=== PATIENT | female | born 1955 | race Caucasian/White ===

== ENCOUNTER 2018-11-28 08:30 | Day surgery (SDC) | payer BC ==
[~2018-11-28 08:30] MED LIST: CITA20 PO
== END 2018-11-28 22:46 | disposition home or self-care (01) ==
LOC: MOI US 08:30
PROC: 0HBU3ZX Excision of Left Breast, Percutaneous Approach, Diagnostic (ICD-10-PCS; principal; 2018-11-28)
DX: C50.912 Malignant neoplasm of unspecified site of left female breast (principal); Z17.0 Estrogen receptor positive status [ER+]
CPT/HCPCS: 19083; 77065; 88305; 88360; A4648; G0279

== ENCOUNTER 2018-12-09 07:05 | Day surgery (SDC) | payer BC | END 2018-12-10 23:17 | disposition home or self-care (01) | LOC: MOI US 07:05 | DX: C50.919 Malignant neoplasm of unspecified site of unspecified female breast (principal) | CPT/HCPCS: 19285; 77065; G0279 ==

== ENCOUNTER 2018-12-20 08:19 | Day surgery (SDC) | payer BC, OTHER ==
[~2018-12-20] VITALS: Ht 157.5 cm; Wt 68.7 kg
[~2018-12-20 08:19] MED LIST changes: +AMIT25 PO
--- NOTE | 2018-12-20 10:16 | NUR ---
History, Chart, Medications and Allergies reviewed before start of procedure. Patient confirms NPO status and agrees with scheduled surgery. Lungs clear T/O to Auscultation. Patient reports completing Chlorhexadine shower X2 prior to admission to hospital. Pre-Op teaching done. Pt verbalizes understanding. Patient States Post-Procedure ride home has been arranged.
--- NOTE | 2018-12-20 11:20 | NUR ---
SURVEY PROJECT MANAGER REPORT AT BEDSIDE IMMEDIATELY PREOP, GAVE 5 MIN PER RN REQUEST PRIOR TO OR.
--- NOTE | 2018-12-20 12:23 | NUR ---
12/20/18 1223 Cele Pennington ALL COUNTS CORRECT, SPECIMEN TO RADIOLOGY AND PATHOLOGY
--- NOTE | 2018-12-20 12:42 | NUR ---
CARE TO REENA MILLAN RN
--- NOTE | 2018-12-20 12:48 | NUR ---
ASSUMED CARE FROM ANNE-MARIE Camarena RN. PT HAS A PAIN LEVEL OF 6/10. B/P WNL. GAVE 25MCGS IV FENTANYL. WILL CONTINUE TO MONITOR. GAUZE TO LEFT BREAST CDI.
--- NOTE | 2018-12-20 14:03 | NUR ---
"DAY SURGERY RN | DISCHARGE Patient steady on feet. VSS. A/O. Tolerating PO fluids. States pain declining. No issues in stepdown. Patient taken in wheelchair by volunteer to private vehicle ( is ride). Rx given with discharge instructions to patient. Site remains C/D/I."
== END 2018-12-20 22:56 | disposition home or self-care (01) ==
LOC: RAD 08:19 → ORSCMMR 08:19 → NM 09:30 → RAD 22:56
DX: C50.812 Malignant neoplasm of overlapping sites of left female breast (principal); C50.919 Malignant neoplasm of unspecified site of unspecified female breast; Z88.5 Allergy status to narcotic agent
CPT/HCPCS: 38792; 76098; A9520; J0690; J1100; J2250; J2370; J2405; J3010; J7120; Q9968

== ENCOUNTER 2019-06-28 09:13 | Day surgery (SDC) | payer MEDICARE, BC ==
[~2019-06-28] VITALS: Ht 160 cm; Wt 66.8 kg
[~2019-06-28 09:13] MED LIST changes: +ADVIL LIQUI-GE200 MG PO; +ANAS1 PO; +CRANBERRY CONC1 EACH PO; +Calcium Citrat250 MG PO; +Cinnamon500 MG PO; +Daily Multiple1 EACH PO; +Ranitidine HCl150 M1 PO; +VITAMIN D35000 UNIT PO; +ZOLEDRONIC4 MG/1001 IV
== END 2019-06-28 11:25 | disposition home or self-care (01) ==
LOC: ORSCSDS 09:13
PROVIDERS: Internal Medicine Gastroenterology
PROC: 0DJD8ZZ Inspection of Lower Intestinal Tract, Via Natural or Artificial Opening Endoscopic (ICD-10-PCS; principal; 2019-06-28 10:30)
DX: Z12.11 Encounter for screening for malignant neoplasm of colon (principal); Z85.3 Personal history of malignant neoplasm of breast; Z53.09 Procedure and treatment not carried out because of other contraindication; K21.9 Gastro-esophageal reflux disease without esophagitis; Z87.891 Personal history of nicotine dependence; Z79.899 Other long term (current) drug therapy
CPT/HCPCS: 93005; 93010; J2704; J7120

== ENCOUNTER → 2020-10-04 | Outpatient (CLI) | payer MEDICARE, BC ==
[2020-10-04 13:45] LABS: Stool Occult Bld Immuno 1 Negative (NEGATIVE)
== END ==
LOC: LAB 11:39 → LAB SHORT 11:39
PROVIDERS: Family Medicine
DX: Z12.11 Encounter for screening for malignant neoplasm of colon (principal)
CPT/HCPCS: G0328

== ENCOUNTER → 2021-07-30 | Outpatient (CLI) | payer MEDICARE, BC | END | disposition home or self-care (01) | LOC: LAB SHORT 10:58 | DX: D22.71 Melanocytic nevi of right lower limb, including hip (principal); D22.72 Melanocytic nevi of left lower limb, including hip; L81.4 Other melanin hyperpigmentation | CPT/HCPCS: 88305 ==

== ENCOUNTER → 2021-08-19 | Outpatient (CLI) | payer MEDICARE, BC | LOC: LAB 11:22 → LAB SHORT 11:22 | DX: D48.5 Neoplasm of uncertain behavior of skin (principal); D36.11 Benign neoplasm of peripheral nerves and autonomic nervous system of face, head, and neck | CPT/HCPCS: 88305 ==

== ENCOUNTER → 2021-08-25 | Outpatient (CLI) | payer MEDICARE, BC | END | disposition home or self-care (01) | LOC: LAB SHORT 15:36 → LAB 15:36 | DX: D22.5 Melanocytic nevi of trunk (principal); D36.16 Benign neoplasm of peripheral nerves and autonomic nervous system of pelvis | CPT/HCPCS: 88305 ==

== ENCOUNTER → 2021-09-09 | Outpatient (CLI) | payer MEDICARE, BC | END | disposition home or self-care (01) | LOC: LAB SHORT 11:26 | DX: D22.4 Melanocytic nevi of scalp and neck (principal) | CPT/HCPCS: 88305 ==

== ENCOUNTER → 2022-01-12 | Outpatient (CLI) | payer MEDICARE, BC ==
[2022-01-12 13:34] LABS: Stool Occult Bld Immuno 1 Negative (NEGATIVE)
== END | disposition home or self-care (01) ==
LOC: LAB SHORT 10:58
PROVIDERS: Family Medicine
DX: Z00.00 Encounter for general adult medical examination without abnormal findings (principal); F43.21 Adjustment disorder with depressed mood; M85.80 Other specified disorders of bone density and structure, unspecified site; R20.8 Other disturbances of skin sensation; Z78.0 Asymptomatic menopausal state; Z85.3 Personal history of malignant neoplasm of breast
CPT/HCPCS: G0328